=== PATIENT | male | born 1995 | race Hispanic/Latino ===

== ENCOUNTER 2023-04-16 11:51 | Emergency (ER) | payer SELFPAY ==
[2023-04-16 14:07] LABS: Absolute Lymphocytes (CBC) 2.1 K/uL (0.7-4.9); Hematocrit 48.2 % (39.6-49.0); MCV 85.8 fL (80-100); MPV 8.6 fL (7.6-11.3); RBC Red Blood Cell Count 5.61 M/uL (4.33-5.43)
[2023-04-16 14:28] LABS: Albumin 4.1 g/dL (3.4-5.0); Bilirubin Total 0.8 mg/dL (0.2-1.0); Potassium 3.8 mEq/L (3.5-5.1); Protein, Total 8.3 g/dL (6.4-8.2)
[2023-04-16 14:34] LABS: Troponin High Sensitivity 62.2 pg/mL (<58.9)
[2023-04-16] MEDS ORDERED: LIDOCAINE VISCOUS 2% SOLN 15 ML UDC ONE (15:21)
[2023-04-16] MEDS ORDERED: MAGNES/ALUMIN/SIMET 30ML UCUP ONE (15:21)
[2023-04-16] MEDS ORDERED: ONDANSETRON 4 MG (ODT) TAB ONE (15:21)
--- NOTE | 2023-04-16 17:22 | ER ---
Nurse's Notes [facility] Name: Glen Noel Age: 28 yrs Sex: Male : 1995 Arrival Date: 04/16/2023 Time: 11:51 Bed 16 Private MD: Diagnosis: Opiate withdrawal;Nausea and vomiting Presentation: 04/16 12:21 Chief complaint: Patient states: stopped Percocet a day or 2 ago, can;t sleep, is iw having burning chest pain, also has back pain from a previous injury and was supposed to have an MRI. Coronavirus screen: At this time, the client does not indicate any symptoms associated with coronavirus-19. Ebola Screen: Patient negative for fever greater than or equal to 101.5 degrees Fahrenheit, and additional compatible Ebola Virus Disease symptoms Patient denies exposure to infectious person. Patient denies travel to an Ebola-affected area in the 21 days before illness onset. No symptoms or risks identified at this time. Initial Sepsis Screen: Does the patient meet any 2 criteria? No. Patient's initial sepsis screen is negative. Does the patient have a suspected source of infection? No. Patient's initial sepsis screen is negative. Risk Assessment: Do you want to hurt yourself or someone else? Patient reports no desire to harm self or others. Onset of symptoms was April 16, 2023. 12:21 Method Of Arrival: Ambulatory iw 12:21 Acuity: RAMON 3 iw Triage Assessment: 16:51 General: Appears in no apparent distress. comfortable, Behavior is calm, cooperative, nj1 appropriate for age. Historical: - Allergies: 12:22 No Known Allergies; iw - PMHx: 12:22 Diabetes mellitus; Hypertensive disorder; iw - Family history:: not pertinent. Screenin:50 [facility] ED Fall Risk Assessment (Adult) History of falling in the last 3 months, nj1 including since admission No falls in past 3 months (0 pts) Confusion or Disorientation No (0 pts) Intoxicated or Sedated No (0 pts) Impaired Gait No (0 pts) Mobility Assist Device Used No (0 pt) Altered Elimination No (0 pt) Score/Fall Risk Level 0 - 2 = Low Risk Oriented to surroundings, Maintained a safe environment, Hourly rounding (assess needs \\T\\ fall precautionary measures) done. Abuse screen: Denies threats or abuse. Denies injuries from another. Nutritional screening: No deficits noted. Tuberculosis screening: No symptoms or risk factors identified. Assessment: 16:12 Reassessment: Patient appears in no apparent distress at this time. Patient and/or vg1 family updated on plan of care and expected duration. Pain level reassessed. Patient is alert, oriented x 3, equal unlabored respirations, skin warm/dry/pink. pt stated "im feeling a little better". 16:50 Reassessment: Patient appears in no apparent distress at this time. Patient and/or nj1 family updated on plan of care and expected duration. Pain level reassessed. Patient is alert, oriented x 3, equal unlabored respirations, skin warm/dry/pink. Patient states feeling better. Patient states symptoms have improved. 16:50 Pain: Complains of pain in chest Pain currently is 4 out of 10 on a pain scale. nj1 17:37 Reassessment: Patient appears in no apparent distress at this time. No changes from vg1 previously documented assessment. Patient and/or family updated on plan of care and expected duration. Pain level reassessed. Patient is alert, oriented x 3, equal unlabored respirations, skin warm/dry/pink. Vital Signs: 12:21 BP 140 / 91; Pulse 68; Resp 16; Temp 98.2; Pulse Ox 100% on R/A; iw 15:30 BP 125 / 65; Pulse 63; Resp 16; Pulse Ox 100% on R/A; vg1 16:57 BP 138 / 87; Pulse 75; Resp 18; Pulse Ox 99% on R/A; Pain 4/10; nj1 16:57 Pain Scale: Adult [facility] ED Course: 11:59 Patient arrived in ED. rg4 12:01 Finesse Mcdermott MD is Attending Physician. rt 12:22 Triage completed. iw 12:23 Arm band placed on. iw 14:00 Saige Cantu, RN is Primary Nurse. iw 14:07 Initial lab(s) drawn, by me, sent to lab. Inserted saline lock: 22 gauge in left iw antecubital area, using aseptic technique. Blood collected. 16:17 Troponin High Sensitivity Sent. vg1 16:51 Patient has correct armband on for positive identification. Bed in low position. Call [facility] light in reach. 17:38 No provider procedures requiring assistance completed. IV discontinued, intact, vg1 bleeding controlled, No redness/swelling at site. Pressure dressing applied. Administered Medications: 15:25 Drug: Ondansetron PO 4 mg Route: PO; nj1 16:12 Follow up: Response: No adverse reaction; Marked relief of symptoms vg1 15:25 Drug: GI Cocktail without - (Maalox PO Suspension 30 ml, Lidocaine Mucous nj1 Membrane Liquid 2 % 15 ml) Route: PO; 16:12 Follow up: Response: No adverse reaction; Marked relief of symptoms vg1 Outcome: 17:22 Discharge ordered by . rt 17:38 Discharged to home ambulatory, with family. vg1 17:38 Condition: good 17:38 Discharge instructions given to patient, Instructed on discharge instructions, follow up and referral plans. medication usage, Demonstrated understanding of instructions, follow-up care, medications, Prescriptions given X 1. 17:38 Patient left the ED. vg1 Signatures: Saige Cantu, RN ELIZA iw Amber Heredia4 Nancy Heredia RN RN vg1 Finesse Mcdermott MD MD rt Mary Tran RN RN nj1
--- NOTE | 2023-04-16 17:22 | EDPHYS ---
Physician Documentation [facility] Name: Glen Noel Age: 28 yrs Sex: Male : 1995 Arrival Date: 04/16/2023 Time: 11:51 Bed 16 Private MD: ED Physician Finesse Mcdermott HPI: 04/16 16:55 This 28 yrs old Male presents to ER via Ambulatory with complaints of Drug rt Withdrawal. 16:55 Presents to the ED with reported Percocet withdrawal symptoms. Patient was taking rt Percocets, stopped 2 days ago. This was due to back pain has been present for over 1 year. Patient states that he is sweaty, has a burning chest pain as well as some nausea. Denies other acute complaints this time. Symptoms are moderate severity, no other aggravating or alleviating factors.. Historical: - Allergies: 12:22 No Known Allergies; iw - PMHx: 12:22 Diabetes mellitus; Hypertensive disorder; iw - Family history:: not pertinent. ROS: 16:55 Constitutional: Negative for fever, chills, and weight loss, Eyes: Negative for injury, rt pain, redness, and discharge, Respiratory: Negative for shortness of breath, cough, wheezing, and pleuritic chest pain, MS/Extremity: Negative for injury and deformity, Skin: Negative for injury, rash, and discoloration, Neuro: Negative for headache, weakness, numbness, tingling, and seizure, Psych: Negative for depression, anxiety, suicide ideation, homicidal ideation, and hallucinations. 16:55 Cardiovascular: Positive for chest pain, Negative for edema. 16:55 Abdomen/GI: Positive for nausea, vomiting, and diarrhea, Negative for abdominal pain. Exam: 16:55 Constitutional: This is a well developed, well nourished patient who is awake, alert, rt and in no acute distress. Head/Face: Normocephalic, atraumatic. Chest/axilla: Normal chest wall appearance and motion. Nontender with no deformity. No lesions are appreciated. Cardiovascular: Regular rate and rhythm with a normal S1 and S2. No gallops, murmurs, or rubs. Normal PMI, no JVD. No pulse deficits. Respiratory: Lungs have equal breath sounds bilaterally, clear to auscultation and percussion. No rales, rhonchi or wheezes noted. No increased work of breathing, no retractions or nasal flaring. Abdomen/GI: Soft, non-tender, with normal bowel sounds. No distension or tympany. No guarding or rebound. No evidence of tenderness throughout. Skin: Warm, dry with normal turgor. Normal color with no rashes, no lesions, and no evidence of cellulitis. MS/ Extremity: Pulses equal, no cyanosis. Neurovascular intact. Full, normal range of motion. Neuro: Awake and alert, GCS 15, oriented to person, place, time, and situation. Cranial nerves II-XII grossly intact. Motor strength 5/5 in all extremities. Sensory grossly intact. Cerebellar exam normal. Normal gait. Psych: Awake, alert, with orientation to person, place and time. Behavior, mood, and affect are within normal limits. 16:55 ECG was reviewed by the Attending Physician. Vital Signs: 12:21 BP 140 / 91; Pulse 68; Resp 16; Temp 98.2; Pulse Ox 100% on R/A; iw 15:30 BP 125 / 65; Pulse 63; Resp 16; Pulse Ox 100% on R/A; vg1 16:57 BP 138 / 87; Pulse 75; Resp 18; Pulse Ox 99% on R/A; Pain 4/10; nj1 16:57 Pain Scale: Adult nj1 MDM: 12:21 Patient medically screened. rt 19:48 Differential Diagnosis Withdrawal, pancreatitis, ACS, pulmonary embolism. Data rt reviewed: vital signs, nurses notes, lab test result(s), EKG, radiologic studies. Consideration of Admission/Observation Escalation of care including admission/observation considered. Patient with symptoms that are very atypical for an acute coronary syndrome. Very minimally elevated troponin is noted without acute ischemic changes on the EKG. At this time, I do not believe the patient requires admission for restratification. Repeat troponin is downtrending, very low suspicion for ACS patient is comfortable discharge at this time. Return precautions were discussed. I considered the following discharge prescriptions or medication management in the emergency department Medications were administered in the Emergency Department. See MAR. Test considered but Not performed: CT: Very low suspicion for pulmonary embolism, CT angiogram not indicated. Care significantly affected by the following chronic conditions: Diabetes, Hypertension. Care significantly affected by the following Social Determinants of Health: Misuse of alcohol and/or drugs. Counseling: I had a detailed discussion with the patient and/or guardian regarding: the historical points, exam findings, and any diagnostic results supporting the discharge/admit diagnosis, lab results, radiology results, the need for outpatient follow up, to return to the emergency department if symptoms worsen or persist or if there are any questions or concerns that arise at home. 04/16 13:21 Order name: CBC with Diff; Complete Time: 14:19 rt 04/16 13:21 Order name: CMP; Complete Time: 14:34 rt 04/16 13:21 Order name: Lipase; Complete Time: 14:34 rt 04/16 13:21 Order name: Troponin High Sensitivity; Complete Time: 14:34 rt 04/16 15:16 Order name: Troponin High Sensitivity; Complete Time: 17:21 rt 04/16 13:21 Order name: EKG; Complete Time: 13:21 rt 04/16 13:21 Order name: EKG - Nurse/Tech; Complete Time: 14:32 rt EC:55 Rate is 77 beats/min. Rhythm is regular, Normal Sinus Rhythm with No ectopy. QRS [place] rt is Normal. [place] interval is normal. QRS interval is normal. QT interval is normal. No Q waves. T waves are Normal. No ST changes noted. Administered Medications: 15:25 Drug: Ondansetron PO 4 mg Route: PO; nj1 16:12 Follow up: Response: No adverse reaction; Marked relief of symptoms vg1 15:25 Drug: GI Cocktail without - (Maalox PO Suspension 30 ml, Lidocaine Mucous nj1 Membrane Liquid 2 % 15 ml) Route: PO; 16:12 Follow up: Response: No adverse reaction; Marked relief of symptoms vg1 Disposition Summary: 04/16/23 17:22 Discharge Ordered Location: Home rt Problem: new rt Symptoms: have improved rt Condition: Stable rt Diagnosis - Opiate withdrawal rt - Nausea and vomiting rt Followup: rt - With: Private Physician - When: 2 - 3 days - Reason: Discharge Instructions: - Discharge Summary Sheet rt - Opioid Withdrawal rt Forms: - Medication Reconciliation Form rt - Thank You Letter rt - Antibiotic Education rt - Prescription Opioid Use rt Prescriptions: - ondansetron 4 mg Oral Tablet,disintegrating - take 1 tablet by ORAL route every 6 hours; 18 tablet; Refills: 0, Product rt Selection Permitted Signatures: Dispatcher [employer] Saige Wiggins RN RN iw Finesse Mcdermott MD MD rt Mary Tran RN RN nj1 Nancy Heredia RN vg1
[2023-04-16 17:52] VITALS: TEMP 98.2
[2023-04-16 17:57] VITALS: BP 138/87; O2SAT 99
--- NOTE | 2023-04-17 12:32 | EKG ---
Test Date: 2023-04-16 Test Time: 14:29:28 Power Operator: KULDEEP MEASUREMENT RESULTS: Intervals: Rate: 77 OR: 156 QRSD: 82 QT: 412 QTc: 466 Luther: P: 13 OR: 156 QRS: 76 T: 57 INTERPRETIVE STATEMENTS: Normal sinus rhythm Normal ECG No previous ECG available for comparison Electronically Signed On 04-17-23 12:31:45 CDT by Francis Silva
== END 2023-04-16 17:38 | disposition home or self-care (01) ==
LOC: ER 11:51
DX: F11.23 Opioid dependence with withdrawal (principal)
CPT/HCPCS: 36415; 80053; 83690; 84484; 85025; 93005; Q0162